=== PATIENT | female | born 1990 | race Caucasian/White ===

== ENCOUNTER → 2017-12-31 06:00 | Outpatient (CLI) | payer MEDICAID | END | disposition home or self-care (01) | LOC: D.LDO 06:00 | DX: O26.893 Other specified pregnancy related conditions, third trimester (principal); Z3A.39 39 weeks gestation of pregnancy ==

== ENCOUNTER 2018-03-21 21:03 | Emergency (ER) | payer OTHER ==
[~2018-03-21] VITALS: Ht 160 cm; Wt 81.8 kg
[2018-03-21 21:08] VITALS: Ht 160 cm; Wt 81.8 kg
[2018-03-21] MEDS ORDERED: HALDOL5 MG PO (21:10)
[2018-03-21 21:30] LABS: BASOPHILS 0.2 % (0-2); EOSINOPHILS 0.5 % (0-7); HEMATOCRIT 36.8 % (36.0-48.0); IMMATURE GRANULOCYTES 0.1 % (0-5); LYMPHOCYTES 35.3 % (15-50); MCH 27.1 pg (26.0-34.0); MCHC 32.6 g/dL (31.0-37.0); MCV 83.3 fL (80.0-100.0); MEAN PLATELET VOLUME 10.6 fL (7.4-10.4); MONOCYTES 9.5 % (2-11); NEUTROPHILS 54.4 % (40-80); PLATELET COUNT 195 10x3/uL (130-400); RBC 4.42 10x6/uL (4.00-5.40); RDW 14.8 % (11.5-14.5); WBC 8.2 10x3/uL (4.8-10.8)
[2018-03-21 21:43] LABS: ALBUMIN 3.8 g/dL (3.4-5.0); ALKALINE PHOSPHATASE 63 U/L (46-116); ALT (SGPT) 32 U/L (10-68); BILIRUBIN - TOTAL 0.72 mg/dL (0.2-1.3); CALC OSMOLALITY 275 mosm/kg (275-300); CALCIUM 8.7 mg/dL (8.5-10.1); CARBON DIOXIDE 28.6 mmol/L (21.0-32.0); CHLORIDE - SERUM 102 mmol/L (98-107); CREATININE - SERUM 0.9 mg/dL (0.6-1.3); GLUCOSE 96 mg/dL (74-106); POTASSIUM - SERUM 3.8 mmol/L (3.5-5.1); PROTEIN - SERUM 7.3 g/dL (6.4-8.2); SODIUM 139 mmol/L (136-145); UREA NITROGEN 8 mg/dL (7-18); eGFR NON AFRICAN AMERICAN 80 mL/min (90-120)
[2018-03-21 22:15] LABS: APPEARANCE CLEAR (CLEAR); COLOR YELLOW (YELLOW)
[2018-03-21 22:16] LABS: BACTERIA FEW /hpf (NONE SEEN); BILIRUBIN NEGATIVE (NEGATIVE); EPITHELIAL CELLS OCC /hpf (0-5); GLUCOSE NEGATIVE (NEGATIVE); KETONE NEGATIVE (NEGATIVE); NITRITE NEGATIVE (NEGATIVE); PROTEIN NEGATIVE (NEGATIVE); UROBILINOGEN NORMAL (NORMAL); WHITE CELLS - URINE 0-5 /hpf (0-5)
[2018-03-21 22:17] LABS: HCG URINE NEGATIVE (NEGATIVE)
[2018-03-21 22:40] LABS: UDS - AMPHET NEGATIVE QUAL (NEGATIVE); UDS - BARB NEGATIVE QUAL (NEGATIVE); UDS - BENZO NEGATIVE QUAL (NEGATIVE); UDS - COCAINE NEGATIVE QUAL (NEGATIVE); UDS - OPIATE NEGATIVE QUAL (NEGATIVE); UDS - PCP NEGATIVE QUAL (NEGATIVE); UDS - THC NEGATIVE QUAL (NEGATIVE)
[2018-03-22] VITALS: BP 146/79
== END 2018-03-22 01:40 | disposition other institution (70) ==
LOC: D.ER 21:03
PROVIDERS: Family Medicine
DX: R45.850 Homicidal ideations (principal); F29 Unspecified psychosis not due to a substance or known physiological condition; R44.0 Auditory hallucinations; R44.1 Visual hallucinations; F17.200 Nicotine dependence, unspecified, uncomplicated

== ENCOUNTER 2018-03-29 11:08 | Emergency (ER) | payer OTHER ==
[~2018-03-29] VITALS: Ht 160 cm; Wt 81.8 kg
[~2018-03-29 11:08] MED LIST: HALDOL5 MG PO
[2018-03-29 11:45] VITALS: BP 137/86; Ht 160 cm; Wt 81.8 kg
[2018-03-29] MEDS ORDERED: LITHIUM CARBON300 MG PO (11:46)
[2018-03-29] MEDS ORDERED: CELEXA10 MG PO (11:46)
[2018-03-29] MEDS ORDERED: INVEGA6 MG/BLIST PO (11:47)
[2018-03-29 12:19] LABS: APPEARANCE CLEAR (CLEAR); BILIRUBIN NEGATIVE (NEGATIVE); COLOR STRAW (YELLOW); GLUCOSE NEGATIVE (NEGATIVE); KETONE NEGATIVE (NEGATIVE); NITRITE NEGATIVE (NEGATIVE); PROTEIN NEGATIVE (NEGATIVE); UROBILINOGEN NORMAL (NORMAL)
[2018-03-29 13:02] LABS: HCG URINE NEGATIVE (NEGATIVE)
== END 2018-03-29 15:34 | disposition home or self-care (01) ==
LOC: D.ER 11:08
PROVIDERS: Family Medicine
DX: R10.9 Unspecified abdominal pain (principal)

== ENCOUNTER 2018-09-26 19:18 | Observation (INO) | payer MEDICAID ==
[~2018-09-26] VITALS: Ht 160 cm; Wt 75.0 kg
[~2018-09-26 19:18] MED LIST changes: +CELEXA10 MG PO; +INVEGA6 MG/BLIST PO; +LITHIUM CARBON300 MG PO
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
[2018-09-26 20:20] LABS: BASOPHILS 0.1 % (0-2); EOSINOPHILS 0 % (0-7); HEMATOCRIT 33.3 % (36.0-48.0); HEMOGLOBIN 11.1 g/dL (12-16); IMMATURE GRANULOCYTES 0.4 % (0-5); LYMPHOCYTES 5.6 % (15-50); MCH 28.5 pg (26.0-34.0); MCHC 33.3 g/dL (31.0-37.0); MCV 85.4 fL (80.0-100.0); MEAN PLATELET VOLUME 10.4 fL (7.4-10.4); MONOCYTES 5.8 % (2-11); NEUTROPHILS 88.1 % (40-80); PLATELET COUNT 210 10x3/uL (130-400); WBC 19.5 10x3/uL (4.8-10.8)
[2018-09-26 20:31] LABS: ALBUMIN 3.8 g/dL (3.4-5.0); ALKALINE PHOSPHATASE 72 U/L (46-116); ALT (SGPT) 16 U/L (10-68); BILIRUBIN - TOTAL 1.12 mg/dL (0.2-1.3); CALC OSMOLALITY 276 mosm/kg (275-300); CALCIUM 8.8 mg/dL (8.5-10.1); CARBON DIOXIDE 26.2 mmol/L (21.0-32.0); CHLORIDE - SERUM 102 mmol/L (98-107); CREATININE - SERUM 0.8 mg/dL (0.6-1.3); GLUCOSE 121 mg/dL (74-106); MAGNESIUM - SERUM 1.7 mg/dL (1.8-2.4); POTASSIUM - SERUM 3.9 mmol/L (3.5-5.1); PROTEIN - SERUM 7.3 g/dL (6.4-8.2); SODIUM 139 mmol/L (136-145); UREA NITROGEN 8 mg/dL (7-18); eGFR NON AFRICAN AMERICAN 90 mL/min (90-120)
[2018-09-26 20:33] LABS: LITHIUM 0.11 mmol/L (0.60-1.20); SALICYLATES 1.3 mg/dL (2.8-20.0)
[2018-09-26 21:24] LABS: UDS - AMPHET NEGATIVE QUAL (NEGATIVE); UDS - BARB NEGATIVE QUAL (NEGATIVE); UDS - BENZO NEGATIVE QUAL (NEGATIVE); UDS - COCAINE NEGATIVE QUAL (NEGATIVE); UDS - OPIATE NEGATIVE QUAL (NEGATIVE); UDS - PCP NEGATIVE QUAL (NEGATIVE); UDS - THC NEGATIVE QUAL (NEGATIVE)
[2018-09-26 21:26] LABS: APPEARANCE CLEAR (CLEAR); BILIRUBIN NEGATIVE (NEGATIVE); COLOR YELLOW (YELLOW); GLUCOSE NEGATIVE (NEGATIVE); KETONE SMALL mg/dL (NEGATIVE); NITRITE NEGATIVE (NEGATIVE); PROTEIN NEGATIVE (NEGATIVE); SPECIFIC GRAVITY 1.015 (1.005-1.020); UROBILINOGEN NORMAL (NORMAL)
[2018-09-26 21:27] LABS: BACTERIA FEW /hpf (NONE SEEN); RED CELLS - URINE OCC /hpf (0-5); WHITE CELLS - URINE 0-5 /hpf (0-5)
[2018-09-26 21:28] LABS: HCG URINE NEGATIVE (NEGATIVE)
--- NOTE | 2018-09-26 22:45 | NUR ---
[facility] STATES THEY ARE UNABLE TO ACCEPT THIS PATIENT.
--- NOTE | 2018-09-26 23:00 | NUR ---
[facility] [place] NO FEMALE BEDS AT THIS TIME.
--- NOTE | 2018-09-26 23:08 | NUR ---
PT DISCUSSED W/GREGORY AT [facility] AND PAPERWORK FAXED FOR PLACEMENT EVALUATION.
--- NOTE | 2018-09-26 23:16 | NUR ---
[facility] STATES THEY CANNOT ACCEPT PT AT THIS TIME.
--- NOTE | 2018-09-26 23:43 | NUR ---
DISCUSSED PT W/OSWALD @ [facility] AND PAPERWORK FAXED FOR PLACEMENT EVALUATION.
--- NOTE | 2018-09-27 00:45 | NUR ---
[facility] DECLINES PATIENT AT THIS TIME.
--- NOTE | 2018-09-27 03:09 | NUR ---
PAPERWORK FAXED TO [facility] FOR PLACEMENT EVALUATION.
--- NOTE | 2018-09-27 04:10 | NUR ---
[facility] DECLINES PT AT THIS TIME.
--- NOTE | 2018-09-27 04:20 | NUR ---
PAPERWORK FAXED TO [facility] FOR PLACEMENT.
--- NOTE | 2018-09-27 05:00 | NUR ---
[facility] DECL[facility]ES PATIENT AT THIS TIME.
--- NOTE | 2018-09-27 05:46 | NUR ---
PAPERWORK FAXED TO [facility] FOR PLACEMENT.
--- NOTE | 2018-09-27 06:24 | NUR ---
[facility] DECLINES PT AT THIS TIME.
--- NOTE | 2018-09-27 06:55 | NUR ---
PT CARE ASSUMED AT THIS TIME, PT IS RESTING ON ER STRETCHER, RESPIRATIONS ARE EVEN AND UNLABORED, NO SIGNS OF ACUTE DISTRESS NOTED, WILL CONTINUE TO MONITOR.
[2018-09-27 08:32] VITALS: BP 137/69
--- NOTE | 2018-09-27 08:32 | NUR ---
ENTERED ROOM FOR VITALS, PT APPEARS TO BE SLEEPING, AROUSES EASILY TO VOICE, RESPIRATIONS EVEN AND UNLABORED, PULSES EQUAL AND STRONG. PT ASKED IF SHE WOULD LIKE BREAKFAST AND SHE REPORTS THAT SHE IS NOT HUNGRY. PT ASKED TO NOTIFY STAFF OF NEEDS, WILL CONTINUE TO MONITOR.
--- NOTE | 2018-09-27 08:45 | NUR ---
THE PATIENT WAS OFFERED BREAKFAST AND ATE 95% OF HER TRAY.
--- NOTE | 2018-09-27 09:06 | NUR ---
[facility] NOTIFIED AND INFORMATION FAXED FOR PATIENT PLACMENT.
--- NOTE | 2018-09-27 10:18 | NUR ---
LAUREANO FROM [facility] CALLED AND THEY DO NOT HAVE CAPABILITY FOR THE PATIENT.
--- NOTE | 2018-09-27 10:30 | NUR ---
PT IS RESTING WITH EYES CLOSED, BILATERAL RISE AND FALL OF CHEST NOTED, NO S/S OF ACUTE DISTRESS NOTED, WILL CONTINUE TO MONITOR.
--- NOTE | 2018-09-27 10:55 | NUR ---
[facility] CALLED TO REPORT THAT THEY DO NOT HAVE BEDS AVAILABLE FOR THE PATIENT.
--- NOTE | 2018-09-27 12:30 | NUR ---
PT IS AAO, AMBULATORY TO THE RESTROOM AT THIS TIME, DENIES NEEDS, WILL CONTINUE TO MONITOR.
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
--- NOTE | 2018-09-27 14:50 | NUR ---
PT AMBULATORY TO THE RESTROOM AT THIS TIME INDEPENDENTLY.
--- NOTE | 2018-09-27 16:30 | NUR ---
PT IS PACING IN THE HALLWAY IN FRONT OF ROOM, FOLLOWING THE SAME PATH, NOT DISRUPTING ANYTHING. THERE ARE NO OTHER PATIENTS OR PEOPLE IN THE AREA SO THE PATIENT IS ALLOWED TO CONTINUE TO WALK THE RACHEL, CAN BE VISUALIZED ON THE CAMERA MONITORING, WILL CONTINUE TO WATCH PATIENT.
--- NOTE | 2018-09-27 17:53 | NUR ---
1730 ARRIVED FROM ER VIA STRETCHER ASSISTED TO BED MONITOR EQIPTMENT APPLIED TO PATIENT. PLEASANT AND EVASIVE WHEN ANSWERING QUESTIONS. STATES SHE IS HOMELESS SOCKS PROVIDED PATIENT IN WATCHING TV.
[2018-09-27 17:59] VITALS: BP 133/76; BMI 29.2
[2018-09-27 18:00] VITALS: BP 137/55
--- NOTE | 2018-09-27 18:48 | NUR ---
1800 DR SOSA ROUNDING ON PATIENT DINNER TRAY SERVED PATIENT VERY HUNGRY
[2018-09-27 19:00] VITALS: BP 140/85
[2018-09-27 23:00] VITALS: BP 114/89
--- NOTE | 2018-09-28 02:00 | NUR ---
RECEIVED A PHONE CALL FROM [facility] [place] REGARDING WM. FERMIN BURK HAS BEEN ACCEPTED BY DR. NABIL ARANA AND DR TAE EDMONDS WILL BE THE ESTATE ADMINISTRATOR IN THE MORNING. THE PHONE NUMBER TO REACH DR EDMONDS IS:
[2018-09-28 03:00] VITALS: BP 124/93
[2018-09-28 04:12] LABS: BASOPHILS 0.3 % (0-2); EOSINOPHILS 1.9 % (0-7); HEMATOCRIT 34.3 % (36.0-48.0); HEMOGLOBIN 11.2 g/dL (12-16); IMMATURE GRANULOCYTES 0.1 % (0-5); LYMPHOCYTES 32.9 % (15-50); MCH 27.9 pg (26.0-34.0); MCHC 32.7 g/dL (31.0-37.0); MCV 85.3 fL (80.0-100.0); MEAN PLATELET VOLUME 11.1 fL (7.4-10.4); MONOCYTES 7.6 % (2-11); NEUTROPHILS 57.2 % (40-80); PLATELET COUNT 212 10x3/uL (130-400); RBC 4.02 10x6/uL (4.00-5.40); RDW 13.7 % (11.5-14.5)
[2018-09-28 04:13] LABS: WBC 7.4 10x3/uL (4.8-10.8)
[2018-09-28 04:25] LABS: CALC OSMOLALITY 279 mosm/kg (275-300); CALCIUM 8.9 mg/dL (8.5-10.1); CARBON DIOXIDE 25.3 mmol/L (21.0-32.0); CHLORIDE - SERUM 106 mmol/L (98-107); CREATININE - SERUM 0.8 mg/dL (0.6-1.3); GLUCOSE 94 mg/dL (74-106); SODIUM 140 mmol/L (136-145); eGFR NON AFRICAN AMERICAN 90 mL/min (90-120)
[2018-09-28 04:27] LABS: UREA NITROGEN 14 mg/dL (7-18)
[2018-09-28 07:11] VITALS: Ht 160 cm; Wt 75.0 kg
[2018-09-28 11:11] VITALS: BP 132/121
--- NOTE | 2018-09-28 11:12 | NUR ---
PT COOPERATIVE AND CALM. MOSTLY SMILES AND LAUGHS WITH ASSESSMENT QUESTIONS ASKED. CALLED FOR DR VILLAR AND SPOKE TO FREDDIE IN PSYCH DEPT. SPOKE TO CM WELL.
--- NOTE | 2018-09-28 12:55 | NUR ---
SPOKE TO DR VILLAR AND CM RE: CONSULT AND PLACEMENT.
--- NOTE | 2018-09-28 13:52 | NUR ---
REPORT CALLED TO ACCEPTING FACILITY [facility]. EMS CALLED AND ETA IS 2HRS FROM NOW. TRANSFER CENTER NOTIFIED.
--- NOTE | 2018-09-28 15:29 | NUR ---
EMS HERE , PT BELONGINGS GIVEN TO EMS WITH DC INSTRUCTIONS AND AMBULANCE FORMS SIGNED. PT AGREEABLE TO GO WITH EMS.
--- NOTE | 2018-09-28 19:27 | MORECARE ---
CASE MANAGEMENT DISCHARGE SUMMARY PATIENT: WM ROTHMAN UNIT: [id number] ADM DATE: 09/27/18 AGE: 28 : 90 SEX: F ROOM/BED: D.2307 AUTHOR: SHANON JAIME PHYSICIAN: REFERRING PHYSICIAN: SOLO SOSA MD DATE OF SERVICE: 09/28/18 Discharge Plan Patient Name: WM ROTHMAN [facility] [facility] 1990 Planned Disposition: Psych facility Anticipated Discharge Date: Discharge Date: 09/28/2018 Expected LOS: Initial Reviewer: [id number] Initial Review Date: 09/28/2018 Generated: 09/28/18 8:27 pm Patient Name: WM ROTHMAN Page [phone] at 1926 All edits/amendments must be made on the electronic document DICTATION DATE: 09/28/181926 RF TECHNICIAN: DONALDO 09/28/181926 RPT#: [id number] DC DATE:09/28/18 STATUS: DIS IN [facility] [address] [place] [address] END OF REPORT
--- NOTE | 2018-09-28 19:41 | MORECARE ---
CASE MANAGEMENT DISCHARGE SUMMARY PATIENT: WM ROTHMAN UNIT: [id number] ADM DATE: 09/27/18 AGE: 28 : 90 SEX: F ROOM/BED: D.2307 AUTHOR: YENI,DOC PHYSICIAN: REFERRING PHYSICIAN: SOLO SOSA MD DATE OF SERVICE: 09/28/18 Discharge Plan Patient Name: WM ROTHMAN Facility: [facility]:[place] : 1990 Planned Disposition: Psych facility Anticipated Discharge Date: Discharge Date: 09/28/2018 Expected LOS: Initial Reviewer: [email or web address] Initial Review Date: 09/28/2018 Generated: 09/28/18 8:40 pm Comments DCP- Discharge Planning Updated by [email or web address]: Ashley Abreu on 09/28/18 6:[address] Patient Name: WM ROTHMAN Admission Status: ER Accout number: [id number] Admission Date: 09-27-2018 : 1990 Admission Diagnosis: Attending: SOLO SOSA Current LOS: 1 Anticipated DC Date: Planned Disposition: Psych facility Primary Insurance: MEDICAID [place] PENDING Discharge Planning Comments: CM SPOKE WITH PATIENT SHE IS WILLING TO GO TO INPATIENT PSYCH FACILTY. PATIENT HAS BEEN ACCEPTED TO [facility] IN [place]. CM WILL CHECK TO SEE IF PATIENT HAS TO BE EVALUATED BY DR PAREDES PRIOR TO TRANSFER TO FACILITY. CM CALLED TRANSFER CENTER TO SEE IF EVALUATION IS REQUIRED. CM ON [address] CALL WITH CALL CENTER AND [place] AND THEY ARE NOT REQUIRING PSYCH EVAL PRIOR TO TRANSFER THEY REQUESTED PHARMACY INFORMATION AND HOME MED LIST . CM SPOKE WITH PATIENT AND SHOULD COULD NOT GIVE ME INFORMATION REGARDING PHARMACY BUT TOLD CM TO CALL [facility] FOR MEDS. CM CALLED AND SPOKE WITH [facility] AND RECIEVED D/C MEDS BUT ALSO STATED THAT THEY HAVE FOUND PATIENT RX IN TRASH. PATIENT WAS DISCHARGED 09/24/18. NURSE CALLED REPORT TO FACILITY AND DR PAREDES NOTIFIED OF PATIENT PLACEMENT. TRANSFER CENTER TO SET UP TRANSPORTATION TO FACILITY. CM WILL FOLLOW AND ASSIST NEEDED WITH DISCHARGE PLANNING / NEEDS. Janitorial Tech: Ashley Abreu Last DP export: 09/28/18 6:27 pm Patient Name: MADORE, WM Page [phone] at 1941 All edits/amendments must be made on the electronic document DICTATION DATE: 09/28/181939 [employer] SOC[employer] STUDIES TEACHER: DONALDO 09/28/181939 RPT#: [id number] DC DATE:09/28/18 STATUS: DIS IN [facility] [address] [facility] [place] [address] END OF REPORT
--- NOTE | 2018-10-01 10:13 | MORECARE ---
CASE MANAGEMENT DISCHARGE SUMMARY PATIENT: WM ORTHMAN UNIT: [id number] ADM DATE: 09/27/18 AGE: 28 : 90 SEX: F ROOM/BED: D.2307 AUTHOR: YENI,DOC PHYSICIAN: REFERRING PHYSICIAN: SOLO SOSA MD DATE OF SERVICE: 10/01/18 Discharge Plan Patient Name: WM ROTHMAN Facility: [facility]:[place] : 1990 Planned Disposition: Psych facility Anticipated Discharge Date: Discharge Date: 09/28/2018 Expected LOS: Initial Reviewer: [email or web address] Initial Review Date: 09/28/2018 Generated: 10/01/18 11:13 am Comments DCP- Discharge Planning Updated by [email or web address]: sAhley Abreu on 09/28/18 6:[address] Patient Name: WM ROTHMAN Admission Status: ER Accout number: [id number] Admission Date: 09-27-2018 : 1990 Admission Diagnosis: Attending: SOLO SOSA Current LOS: 1 Anticipated DC Date: Planned Disposition: Psych facility Primary Insurance: MEDICAID [place] PENDING Discharge Planning Comments: CM SPOKE WITH PATIENT SHE IS WILLING TO GO TO INPATIENT PSYCH FACILTY. PATIENT HAS BEEN ACCEPTED TO [facility] IN [place]. CM WILL CHECK TO SEE IF PATIENT HAS TO BE EVALUATED BY DR PAREDES PRIOR TO TRANSFER TO FACILITY. CM CALLED TRANSFER CENTER TO SEE IF EVALUATION IS REQUIRED. CM ON [address] CALL WITH CALL CENTER AND [place] AND THEY ARE NOT REQUIRING PSYCH EVAL PRIOR TO TRANSFER THEY REQUESTED PHARMACY INFORMATION AND HOME MED LIST . CM SPOKE WITH PATIENT AND SHOULD COULD NOT GIVE ME INFORMATION REGARDING PHARMACY BUT TOLD CM TO CALL [facility] FOR MEDS. CM CALLED AND SPOKE WITH [facility] AND RECIEVED D/C MEDS BUT ALSO STATED THAT THEY HAVE FOUND PATIENT RX IN TRASH. PATIENT WAS DISCHARGED 09/24/18. NURSE CALLED REPORT TO FACILITY AND DR PAREDES NOTIFIED OF PATIENT PLACEMENT. TRANSFER CENTER TO SET UP TRANSPORTATION TO FACILITY. CM WILL FOLLOW AND ASSIST NEEDED WITH DISCHARGE PLANNING / NEEDS. Shore Working Supervisor: Ashley Abreu Last DP export: 09/28/18 6:40 pm Patient Name: MADORE, WM Page [phone] at 1013 All edits/amendments must be made on the electronic document DICTATION DATE: 10/01/18 1012 DEPUTY SHERIFF LIEUTENANT: DONALDO 10/01/18 1012 RPT#: [id number] DC DATE:09/28/18 STATUS: DIS IN [facility] [address] [place] [address] END OF REPORT
== END 2018-09-28 15:34 ==
LOC: D.ER 19:18 → D.ICU 09-27 16:27 → D.EDHOLD 09-27 16:27 → OBSVTIME 09-27 16:28 → D.ICU 09-27 17:10
PROVIDERS: Family Medicine; ADMIT Internal Medicine Nephrology; ATTEND Internal Medicine Nephrology
DX: F20.9 Schizophrenia, unspecified (principal); D64.9 Anemia, unspecified; E83.42 Hypomagnesemia; F17.203 Nicotine dependence unspecified, with withdrawal; F31.9 Bipolar disorder, unspecified

== ENCOUNTER 2018-10-22 10:40 | Emergency (ER) | payer MEDICAID ==
[~2018-10-22] VITALS: Ht 160 cm; Wt 80.9 kg
[2018-10-22 10:53] VITALS: Ht 160 cm; Wt 80.9 kg
[2018-10-22 11:34] LABS: BASOPHILS 0.3 % (0-2); EOSINOPHILS 1.6 % (0-7); HEMATOCRIT 37.9 % (36.0-48.0); HEMOGLOBIN 12.4 g/dL (12-16); IMMATURE GRANULOCYTES 0.1 % (0-5); LYMPHOCYTES 25.3 % (15-50); MCH 27.9 pg (26.0-34.0); MCHC 32.7 g/dL (31.0-37.0); MCV 85.4 fL (80.0-100.0); MEAN PLATELET VOLUME 11.1 fL (7.4-10.4); MONOCYTES 5.7 % (2-11); PLATELET COUNT 204 10x3/uL (130-400); RBC 4.44 10x6/uL (4.00-5.40); RDW 14.3 % (11.5-14.5); WBC 7.9 10x3/uL (4.8-10.8)
[2018-10-22 11:43] LABS: HCG SERUM NEGATIVE (NEGATIVE)
[2018-10-22 11:46] LABS: ALBUMIN 3.6 g/dL (3.4-5.0); ALKALINE PHOSPHATASE 54 U/L (46-116); ALT (SGPT) 18 U/L (10-68); BILIRUBIN - TOTAL 0.59 mg/dL (0.2-1.3); CALC OSMOLALITY 280 mosm/kg (275-300); CALCIUM 8.6 mg/dL (8.5-10.1); CARBON DIOXIDE 27.6 mmol/L (21.0-32.0); CHLORIDE - SERUM 106 mmol/L (98-107); CREATININE - SERUM 0.7 mg/dL (0.6-1.3); GLUCOSE 92 mg/dL (74-106); POTASSIUM - SERUM 3.8 mmol/L (3.5-5.1); PROTEIN - SERUM 6.9 g/dL (6.4-8.2); SODIUM 141 mmol/L (136-145); UREA NITROGEN 12 mg/dL (7-18); eGFR NON AFRICAN AMERICAN > 90 mL/min (90-120)
[2018-10-22 12:06] LABS: APPEARANCE HAZY (CLEAR); BILIRUBIN NEGATIVE (NEGATIVE); COLOR YELLOW (YELLOW); GLUCOSE NEGATIVE (NEGATIVE); KETONE NEGATIVE (NEGATIVE); NITRITE NEGATIVE (NEGATIVE); PROTEIN NEGATIVE (NEGATIVE); UROBILINOGEN NORMAL (NORMAL)
[2018-10-22 15:47] LABS: UDS - AMPHET NEGATIVE QUAL (NEGATIVE); UDS - BARB NEGATIVE QUAL (NEGATIVE); UDS - BENZO NEGATIVE QUAL (NEGATIVE); UDS - COCAINE NEGATIVE QUAL (NEGATIVE); UDS - OPIATE NEGATIVE QUAL (NEGATIVE); UDS - PCP NEGATIVE QUAL (NEGATIVE); UDS - THC NEGATIVE QUAL (NEGATIVE)
[2018-10-22 19:49] VITALS: BP 138/89
== END 2018-10-22 19:51 ==
LOC: D.ER 10:40
PROVIDERS: Family Medicine
DX: F22 Delusional disorders (principal); F32.9 Major depressive disorder, single episode, unspecified; Z86.59 Personal history of other mental and behavioral disorders